=== PATIENT | male | born 1985 | race Caucasian/White ===

== ENCOUNTER → 2016-11-16 | Outpatient (CLI) | payer MEDICAID ==
[2016-11-16 11:41] LABS: CHOLESTEROL 163.65 mg/dL (0-200); Direct HDL 38 mg/dL (>40); TRIGLYCERIDES 224 mg/dL (<150)
[2016-11-16 11:52] LABS: DIRECT LDL 92 mg/dL (<100)
[2016-11-16 11:56] LABS: VLDL CHOLESTEROL 44.8 mg/dL (10-31)
[2016-11-19 07:07] LABS: CYCLIC CITRUL PEPTIDE IGG/A AB 6 units (0-19)
[2016-11-19 15:37] LABS: ALBUMIN 2 4.1 g/dL (2.9-4.4); ALPHA-1-GLOBULIN 2 0.3 g/dL (0.0-0.4); GAMMA GLOBULIN 1.5 g/dL (0.4-1.8); PROTEIN TOTAL SERUM 8.2 g/dL (6.0-8.5)
== END ==
LOC: OD 10:16
DX: S83.241A Other tear of medial meniscus, current injury, right knee, initial encounter (principal); X58.XXXA Exposure to other specified factors, initial encounter; M19.90 Unspecified osteoarthritis, unspecified site; E88.09 Other disorders of plasma-protein metabolism, not elsewhere classified; M54.5 Low back pain; D75.1 Secondary polycythemia
CPT/HCPCS: 36415; 80061; 82668; 84165; 84166; 84443; 85652; 86038; 86200; 86430

== ENCOUNTER → 2016-11-16 | Outpatient (CLI) | payer MEDICAID | LOC: RAD 10:48 | DX: S83.241A Other tear of medial meniscus, current injury, right knee, initial encounter (principal); X58.XXXA Exposure to other specified factors, initial encounter ==

== ENCOUNTER 2017-07-08 20:47 | Emergency (ER) | payer MEDICAID ==
[2017-07-08] MEDS ORDERED: PREDNISONE 20 MG TABLET PO ONE (23:07)
--- NOTE | 2017-07-08 23:09 | ER Document Report ---
ED General - General Chief Complaint: Numbness of Arm Stated Complaint: RIGHT HAND NUMBNESS Time Seen by Provider: 07/08/17 22:36 Notes: Patient is a 31-year-old male who presents with complaint of pain and numbness that radiates into his fifth fourth and part of his third digit of his right hand. He also has little bit pain in his elbow and just proximal to the elbow. 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 He says his symptoms have been ongoing for a week but he has continued to work and his symptoms have gotten worse. No recent trauma or to his elbow or arm. No other complaints at this time. This is never happened before. TRAVEL OUTSIDE OF THE [place] IN LAST 30 DAYS: No - Related Data Allergies/Adverse Reactions: clindamycin Allergy (Verified 05/24/16 07:42) Past Medical History - Social History Smoking Status: Never Smoker Frequency of alcohol use: None Drug Abuse: None Family History: Arthritis, CVA, DM Patient has suicidal ideation: No Patient has homicidal ideation: No Renal/ Medical History: Denies: Hx Peritoneal Dialysis Musculoskeltal Medical History: Reports Hx Arthritis - Immunizations Immunizations up to date: No Hx Diphtheria, Pertussis, Tetanus Vaccination: No Review of Systems - Review of Systems Notes: My Normal Review Basic REVIEW OF SYSTEMS: CONSTITUTIONAL : Denies fever, chills, or sweats. Denies recent illness.ENT: Denies eye, ear, throat, or mouth pain or symptoms. Denies nasal or sinus MUSCULOSKELETAL: Pain and numbness into digits 5, 4, and 3 in the right hand. SKIN: Denies rash or skin lesions. NEUROLOGICAL: Pain and tingling into the right hand. ALL OTHER SYSTEMS REVIEWED AND NEGATIVE. Physical Exam - Vital signs Vitals: Temp Pulse Resp BP Pulse Ox 97.7 F 93 17 120/62 98 07/08/17 21:31 07/08/17 21:31 07/08/17 21:31 07/08/17 21:31 07/08/17 21:31 - Notes Notes: General Appearance: Well nourished, alert, cooperative, no acute distress, moderate obvious discomfort. Vitals: reviewed, See vital signs table. Eyes: PERRL, EOMI, Conjuctiva clear Extremities: s, good pulses in all extremities, patient does have some pain to palpation of digits 5 4 and 3 in the right hand. He is able for me touch the fingers but says it is somewhat tingling. He is able flex and extend them but does seem to have some decreased strength in those digits. Patient has good strength and normal sensation in digits 1 and 2 of the right hand. Patient does have pain to palpation over the medial malleolus. Skin: warm, dry, appropriate color, no rash Neuro: speech clear, oriented x 3, normal affect, responds appropriately to questions. Course - Re-evaluation Re-evalutation: 07/09/17 03:34 Patient has what appears to be ulnar neuropathy. I suspect he has impingement of the ulnar nerve at his elbow. Is also possibility could be having impingement his wrist. I informed him that it is very important that he gives his elbow rest. I encouraged him to apply ice packs elbow. I encouraged him to take NSAID medications and will place him on prednisone taper. I will have him follow-up with orthopedics. Patient seems wary about stopping work. I informed him that he continues to work that this will only get worse and he may lose function of his hand and he may already have some permanent damage to the nerve itself. Patient is understanding of this. Patient does agree to follow- up closely with the orthopedist. I did offer him a sling but patient said not to bother because he would not wear the sling. Patient encouraged to return to ER if he has worsening symptoms. Dictation of this chart was performed using voice recognition software; therefore, there may be some unintended grammatical errors. - Vital Signs Vital signs: Temp Pulse Resp BP Pulse Ox 97.6 F 92 16 120/58 L 97 07/09/17 00:01 07/09/17 00:01 07/09/17 00:01 07/09/17 00:01 07/09/17 00:01 Discharge - Discharge Clinical Impression: Ulnar neuropathy Qualifiers: Laterality: right Qualified Code(s): G56.21 - Lesion of ulnar nerve, right upper limb Condition: Good Disposition: HOME, SELF-CARE Additional Instructions: You have what appears to be an ulnar neuropathy of your right arm. Classically this occurs due to impingement of the nerve at the elbow due to repetitive use. Sometimes he can also be related to impingement at the wrist. I suspect her impingement is at the elbow. I will place her on steroids. Please continue to take the naproxen. It is very important you call the orthopedist for close follow-up appointment. Please do ice on the elbow for 20 minutes at a time. Please try to avoid any work or use of your right upper extremity until cleared by the orthopedist. Prescriptions: Prednisone 10 mg PO ASDIR #42 tablet Forms: Return to Work Referrals: CIRA SINGH MD [Primary Care Provider] - Follow up as needed ANNIKA BLOOD DO [ACTIVE STAFF] - Follow up tomorrow (call office in the morning for follow up appointment)
[2017-07-09 00:09] VITALS: BP 120/58
== END 2017-07-09 00:01 | disposition home or self-care (01) ==
LOC: ER 20:47
DX: G56.21 Lesion of ulnar nerve, right upper limb (principal); Z88.1 Allergy status to other antibiotic agents
CPT/HCPCS: 99283; J7512

== ENCOUNTER 2017-11-23 08:08 | Emergency (ER) | payer MEDICAID ==
[2017-11-23 08:16] VITALS: BP 114/64
[2017-11-23] MEDS ORDERED: LIDOCAINE 2% VISCOUS SOLN 20 ML UDCUP PO ONE (08:44)
[2017-11-23] MEDS ORDERED: TRAMADOL HCL 50 MG TABLET PO ONE (08:49)
[2017-11-23] MEDS ORDERED: PENICILLIN V POTASSIUM 500 MG TABLET PO ONE (08:49)
--- NOTE | 2017-11-23 08:51 | ER Document Report ---
ED General - General Chief Complaint: Toothache Stated Complaint: BROKEN TOOTH Time Seen by Provider: 11/23/17 08:44 TRAVEL OUTSIDE OF THE [place] IN LAST 30 DAYS: No - HPI Patient complains to provider of: Dental pain Notes: Patient states pain at tooth #1 catheter trying to buy the top off of a toy for his son patient states he thinks he fractured his tooth. Denies any fever chills nausea vomiting diarrhea. Patient resting comfortably - Related Data Allergies/Adverse Reactions: clindamycin Allergy (Verified 05/24/16 07:42) Past Medical History - Social History Smoking Status: Current Every Day Smoker Chew tobacco use (# tins/day): No Frequency of alcohol use: Occasional Drug Abuse: None Family History: Arthritis, CVA, DM Patient has suicidal ideation: No Patient has homicidal ideation: No Renal/ Medical History: Denies: Hx Peritoneal Dialysis Musculoskeltal Medical History: Reports Hx Arthritis - Immunizations Immunizations up to date: No Hx Diphtheria, Pertussis, Tetanus Vaccination: No Review of Systems - Review of Systems Constitutional: No symptoms reported EENT: Other - Dental pain Cardiovascular: No symptoms reported Respiratory: No symptoms reported Gastrointestinal: No symptoms reported Genitourinary: No symptoms reported Male Genitourinary: No symptoms reported Musculoskeletal: No symptoms reported Skin: No symptoms reported Hematologic/Lymphatic: No symptoms reported Neurological/Psychological: No symptoms reported -: Yes All other systems reviewed and negative Physical Exam - Vital signs Vitals: Temp Pulse Resp BP Pulse Ox 97.6 F 103 H 18 114/64 98 11/23/17 08:14 11/23/17 08:14 11/23/17 08:14 11/23/17 08:14 11/23/17 08:14 Interpretation: Normal - General General appearance: Appears well, Alert - HEENT Head: Normocephalic, Atraumatic Eyes: Normal Pupils: PERRL Notes: Examination of the mouth reveals possible slight fracture of the tooth #1 no signs of abscess there is gingival cellulitis - Respiratory Respiratory status: No respiratory distress Chest status: Nontender Breath sounds: Normal Chest palpation: Normal - Cardiovascular Rhythm: Regular Heart sounds: Normal auscultation Murmur: No - Abdominal Inspection: Normal Distension: No distension Bowel sounds: Normal Tenderness: Nontender Organomegaly: No organomegaly - Back Back: Normal, Nontender - Extremities General upper extremity: Normal inspection, Nontender, Normal color, Normal ROM , Normal temperature General lower extremity: Normal inspection, Nontender, Normal color, Normal ROM , Normal temperature, Normal weight bearing. No: Dewayne's sign - Neurological Neuro grossly intact: Yes Cognition: Normal Orientation: AAOx4 [place] Coma Scale Eye Opening: Spontaneous [place] Coma Scale Verbal: Oriented [place] Coma Scale Motor: Obeys Commands [place] Coma Scale Total: 15 Speech: Normal Motor strength normal: LUE, RUE, LLE, RLE Sensory: Normal - Psychological Associated symptoms: Normal affect, Normal mood - Skin Skin Temperature: Warm Skin Moisture: Dry Skin Color: Normal Course - Re-evaluation Re-evalutation: 11/23/17 14:15 Because this possible fracture will start on penicillin patient was given tramadol for pain control encouraged follow-up with dentist. Patient will be discharged home. - Vital Signs Vital signs: Temp Pulse Resp BP Pulse Ox 97.6 F 103 H 18 114/64 98 11/23/17 08:14 11/23/17 08:14 11/23/17 08:14 11/23/17 08:14 11/23/17 08:14 Discharge - Discharge Clinical Impression: Pain, dental Condition: Good Disposition: HOME, SELF-CARE Instructions: [facility]aring [facility], Oral Narcotic Medication ([facility]), Penicillin V K ([facility]), Toothache ([facility]) Additional Instructions: Your examination today does show a small chipping her tooth. At this time there is no signs of infection please take penicillin to prevent any infection. He may take the medication as prescribed for pain control. Continue to take your Aleve he may also take Tylenol for pain control. He may use a lidocaine jelly that we gave you here in ER 2 help numb up your tooth. Also over-the- counter Orajel also help in pain relief. Please make sure he follow-up with a dentist Prescriptions: Penicillin V Potassium [Penicillin Vk 500 mg Tablet] 500 mg PO BID #20 tablet Tramadol HCl [Ultram 50 mg Tablet] 50 mg PO ASDIR PRN #30 tablet PRN Reason: Forms: Return to Work
== END 2017-11-23 09:11 | disposition home or self-care (01) ==
LOC: ER 08:08
DX: K08.9 Disorder of teeth and supporting structures, unspecified (principal); F17.200 Nicotine dependence, unspecified, uncomplicated; Z88.3 Allergy status to other anti-infective agents
CPT/HCPCS: 99282; J3490 ×2

== ENCOUNTER 2018-06-17 05:41 | Emergency (ER) | payer MEDICAID ==
[2018-06-17 05:59] VITALS: BP 137/73
--- NOTE | 2018-06-17 08:08 | ER Document Report ---
ED Medical Screen (RME) - General Chief Complaint: Nausea/Vomiting/Diarrhea Stated Complaint: VOMITING Time Seen by Provider: 06/17/18 08:04 Mode of Arrival: Ambulatory Information source: Patient Notes: pt reports n/v/d since saturday. usually vomiting in the morning when he first wakes up but yesterday 4-5 x and today. Diarrhea several times a day. Trying to drink gatorade, took dramamine, tylenol and immodium without relief. I have greeted and performed a rapid initial assessment of this patient. A comprehensive ED assessment and evaluation of the patient, analysis of test results and completion of the medical decision making process will be conducted by additional ED providers. TRAVEL OUTSIDE OF THE [place] IN LAST 30 DAYS: No - Related Data Allergies/Adverse Reactions: clindamycin Allergy (Verified 05/24/16 07:42) Past Medical History Renal/ Medical History: Denies: Hx Peritoneal Dialysis Musculoskeltal Medical History: Reports Hx Arthritis - Immunizations Immunizations up to date: No Hx Diphtheria, Pertussis, Tetanus Vaccination: No Physical Exam - Vital signs Vitals: Temp Pulse Resp BP Pulse Ox 98.5 F 94 16 137/73 H 99 06/17/18 05:52 06/17/18 05:52 06/17/18 05:52 06/17/18 05:52 06/17/18 05:52 Course - Vital Signs Vital signs: Temp Pulse Resp BP Pulse Ox 98.5 F 94 16 137/73 H 99 06/17/18 05:52 06/17/18 05:52 06/17/18 05:52 06/17/18 05:52 06/17/18 05:52 - Laboratory Result Diagrams: 06/17/18 07:55 06/17/18 07:55 Laboratory results interpreted by me: 06/17/18 06/17/18 07:55 07:55 RBC 5.61 H RDW 14.4 H Sodium 145.8 H Doctor's Discharge - Discharge Clinical Impression: Gastroenteritis Condition: Fair Disposition: HOME, SELF-CARE Instructions: Diarrhea, Nonspecific ([facility]), Gastroenteritis (adult) ([facility]) Prescriptions: Ondansetron [Zofran Odt 4 mg Tablet] 1 tab PO Q4H PRN #15 tab.rapdis PRN Reason: For Nausea/Vomiting Forms: Return to Work
[2018-06-17 08:21] LABS: ABSOLUTE BASOPHILS # (AUTO) 0.1 10^3/uL (0.0-0.2); ABSOLUTE EOSINOPHILS # (AUTO) 0.1 10^3/uL (0.0-0.6); ABSOLUTE LYMPHOCYTES (AUTO) 1.6 10^3/uL (0.5-4.7); ABSOLUTE MONOCYTES (AUTO) 0.5 10^3/uL (0.1-1.4); ABSOLUTE NEUT (AUTO) 7.3 10^3/uL (1.7-8.2); BASOPHILS % (AUTO) 0.8 % (0-2); EOSINOPHILS % (AUTO) 0.6 % (0-6); HEMATOCRIT 48.9 % (37.9-51.0); HEMOGLOBIN 16.8 g/dL (13.5-17.0); LYMPHOCYTES % (AUTO) 17.2 % (13-45); MEAN CORPUSCULAR HGB CONC 34.4 g/dL (32.0-36.0); MEAN CORPUSCULAR VOLUME 87 fl (80-97); MONOCYTES % (AUTO) 4.8 % (3-13); PLATELET COUNT 315 10^3/uL (150-450); RED BLOOD COUNT 5.61 10^6/uL (4.35-5.55); RED CELL DISTRIBUTION WIDTH 14.4 % (11.5-14.0); SEGMENTED NEUTROPHILS % (AUTO) 76.6 % (42-78); TOTAL CELLS COUNTED % (AUTO) 100 %; WHITE BLOOD COUNT 9.5 10^3/uL (4.0-10.5)
[2018-06-17 08:28] LABS: APPEARANCE,URINE CLEAR; BILIRUBIN,URINE NEGATIVE (NEGATIVE); COLOR,URINE STRAW; GLUCOSE, URINE NEGATIVE (NEGATIVE); KETONES,URINE NEGATIVE (NEGATIVE); LEUKOCYTE ESTERASE,URINE NEGATIVE (NEGATIVE); NITRITE,URINE NEGATIVE (NEGATIVE); PROTEIN,URINE NEGATIVE (NEGATIVE); URINE SPECIFIC GRAVITY 1.008; UROBILINOGEN,URINE NEGATIVE mg/dL (<2.0)
[2018-06-17 08:43] LABS: ALANINE AMINOTRANSFERASE 22 U/L (21-72); ALBUMIN 4.5 g/dL (3.5-5.0); ALKALINE PHOSPHATASE 63 U/L (38-126); ANION GAP 13 (5-19); ASPARTATE AMINO TRANSFERASE 17 U/L (17-59); BILIRUBIN,DIRECT 0.3 mg/dL (0.0-0.4); BILIRUBIN,TOTAL 0.5 mg/dL (0.2-1.3); BLOOD UREA NITROGEN 16 mg/dL (7-20); CALCIUM 9.6 mg/dL (8.4-10.2); CARBON DIOXIDE 26 mmol/L (22-30); CHLORIDE 107 mmol/L (98-107); GLUCOSE 92 mg/dL (75-110); POTASSIUM 4.7 mmol/L (3.6-5.0); SODIUM 145.8 mmol/L (137-145); TOTAL PROTEIN 7.9 g/dL (6.3-8.2)
--- NOTE | 2018-06-17 09:28 | ER Document Report ---
ED GI/ - General Chief Complaint: Nausea/Vomiting/Diarrhea Stated Complaint: VOMITING Time Seen by Provider: 06/17/18 08:04 Mode of Arrival: Ambulatory Notes: Chief complaint: Nausea vomiting History of complain:( obtained from----patient) 32 years old male presents today for a work note, he states that he has been having nausea vomiting and loose stool for the last 3 days, but is better today. No fever chills or other constitutional symptoms. Onset: As above gradual Duration: 3 days Severity: Mild Quality: Not applicable Context: None Exacerbating factor and relieving factors: None REVIEW OF SYSTEMS: CONSTITUTIONAL : Denies fever, chills, or sweats. Denies recent illness. EENT: Denies eye, ear, throat, or mouth pain or symptoms. Denies nasal or sinus congestion or discharge. Denies throat, tongue, or mouth swelling or difficulty swallowing. CARDIOVASCULAR: Denies chest pain. Denies palpitations or racing or irregular heart beat. Denies ankle edema. RESPIRATORY: Denies cough, cold, or chest congestion. Denies shortness of breath, difficulty breathing, or wheezing. GASTROINTESTINAL: Denies distention. Denies nausea, vomiting, or diarrhea. Denies blood in vomitus, stools, or per rectum. Denies black, tarry stools. Denies constipation. GENITOURINARY: Denies difficulty urinating, painful urination, burning, frequency, blood in urine, or discharge. FEMALE GENITOURINARY: Denies vaginal bleeding, heavy or abnormal periods, irregular periods. Denies vaginal discharge or odor. MUSCULOSKELETAL: Denies back or neck pain or stiffness. Denies joint pain or swelling. SKIN: Denies rash, lesions or sores. HEMATOLOGIC : Denies easy bruising or bleeding. LYMPHATIC: Denies swollen, enlarged glands. NEUROLOGICAL: Denies confusion or altered mental status. Denies passing out or loss of consciousness. Denies dizziness or lightheadedness. Denies headache. Denies weakness or paralysis or loss of use of either side. Denies problems with gait or speech. Denies sensory loss, numbness, or tingling. Denies seizures. PSYCHIATRIC: Denies anxiety or stress. Denies depression, suicidal ideation, or homicidal ideation. ALL OTHER SYSTEMS REVIEWED AND NEGATIVE. PHYSICAL EXAMINATION: GENERAL: Well-appearing, well-nourished and in no acute distress. HEAD: Atraumatic, normocephalic. EYES: Pupils equal round and reactive to light, extraocular movements intact, conjunctiva are normal. ENT: Nares patent, oropharynx clear without exudates. Moist mucous membranes. NECK: Normal range of motion, supple without lymphadenopathy LUNGS: Breath sounds clear to auscultation bilaterally and equal. No wheezes rales or rhonchi. HEART: Regular rate and rhythm without murmurs ABDOMEN: Soft, nontender, nondistended abdomen. No guarding, no rebound. No masses appreciated. Examination of genitals-deferred Musculoskeletal: Normal range of motion, no pitting or edema. No cyanosis. NEUROLOGICAL: Cranial nerves grossly intact. Normal speech, normal gait. Normal sensory, motor exams PSYCH: Normal mood, normal affect. SKIN: Warm, Dry, normal turgor, no rashes or lesions noted. Dictation was performed using [employer] voice recognition software TRAVEL OUTSIDE OF THE [place] IN LAST 30 DAYS: No - HPI Notes: 06/17/18 09:25 Dictated - Related Data Allergies/Adverse Reactions: clindamycin Allergy (Verified 05/24/16 07:42) Past Medical History - General Information source: Patient - Social History Smoking Status: Current Every Day Smoker Cigarette use (# per day): No Chew tobacco use (# tins/day): No Smoking Education Provided: No Frequency of alcohol use: Rare Drug Abuse: None Family History: Reviewed & Not Pertinent, Arthritis, CVA, DM Renal/ Medical History: Denies: Hx Peritoneal Dialysis Musculoskeletal Medical History: Reports Hx Arthritis - Immunizations Immunizations up to date: No Hx Diphtheria, Pertussis, Tetanus Vaccination: No Review of Systems - Review of Systems Notes: Dictated Physical Exam - Vital signs Vitals: Temp Pulse Resp BP Pulse Ox 98.5 F 94 16 137/73 H 99 06/17/18 05:52 06/17/18 05:52 06/17/18 05:52 06/17/18 05:52 06/17/18 05:52 - Notes Notes: Dictated Course - Vital Signs Vital signs: Temp Pulse Resp BP Pulse Ox 98.5 F 94 16 137/73 H 99 06/17/18 05:52 06/17/18 05:52 06/17/18 05:52 06/17/18 05:52 06/17/18 05:52 - Laboratory Result Diagrams: 06/17/18 07:55 06/17/18 07:55 Laboratory results interpreted by me: 06/17/18 06/17/18 07:55 07:55 RBC 5.61 H RDW 14.4 H Sodium 145.8 H Discharge - Discharge Clinical Impression: Gastroenteritis Condition: Fair Disposition: HOME, SELF-CARE Instructions: Diarrhea, Nonspecific ([facility]), Gastroenteritis (adult) ([facility]) Prescriptions: Ondansetron [Zofran Odt 4 mg Tablet] 1 tab PO Q4H PRN #15 tab.rapdis PRN Reason: For Nausea/Vomiting Forms: Return to Work
== END 2018-06-17 09:30 | disposition home or self-care (01) ==
LOC: ER 05:41
DX: K52.9 Noninfective gastroenteritis and colitis, unspecified (principal); R11.2 Nausea with vomiting, unspecified; F17.200 Nicotine dependence, unspecified, uncomplicated
CPT/HCPCS: 36415; 80053; 81001; 85025; 99284